=== PATIENT | male | born 1955 | race Caucasian/White ===

== ENCOUNTER → 2019-09-21 10:02 | Outpatient (BNVA) | payer MEDICARE, SELFPAY | PROVIDERS: Family Provider Family Medicine; PCP Family Medicine; Visit Provider Urology | DX: N40.0 Benign prostatic hyperplasia without lower urinary tract symptoms (principal); N39.0 Urinary tract infection, site not specified | CPT/HCPCS: 81001 ==

== ENCOUNTER → 2020-02-11 09:00 | Outpatient (BNVA) | payer MEDICARE, SELFPAY | PROVIDERS: Family Provider Family Medicine; PCP Family Medicine; Visit Provider Nurse Practitioner Family | DX: E11.9 Type 2 diabetes mellitus without complications (principal); Z12.11 Encounter for screening for malignant neoplasm of colon; Z68.33 Body mass index [BMI] 33.0-33.9, adult; I10 Essential (primary) hypertension; N40.0 Benign prostatic hyperplasia without lower urinary tract symptoms | CPT/HCPCS: 80053; 80061; 83036; 84153; 84439; 84443 ==

== ENCOUNTER → 2020-03-10 13:36 | Outpatient (BNVA) | payer MEDICARE, SELFPAY | PROVIDERS: Family Provider Family Medicine; PCP Family Medicine; Visit Provider Nurse Practitioner Family | DX: Z02.89 Encounter for other administrative examinations (principal) | CPT/HCPCS: 81000 ==

== ENCOUNTER 2020-03-20 08:21 | Day surgery (SDC) | payer MEDICARE, SELFPAY ==
[2020-03-17 07:57] VITALS: BMI 33.7
[2020-03-20 08:37] VITALS: BP 144/103; PULSE 66; RESP 18; TEMP 36.4; O2SAT 98
[2020-03-20] MEDS: sodium chloride 0.9% 1,000 ML 30 ML IV (08:46)
[2020-03-20 08:50] LABS: Glucose Point of Care 137 mg/dL (70-110)
--- NOTE | 2020-03-20 08:56 | ANES.PREANE2 ---
Pre-Anesthetic Assessment Pre-Anesthetic Assessment: Height/Weight: Height 1.88 m Weight 119.295 kg Temp Pulse Resp BP Pulse Ox 97.5 F L 66 18 144/103 98 03/20/20 08:37 03/20/20 08:37 03/20/20 08:37 03/20/20 08:37 03/20/20 08:37 Preop Diagnosis: screening Proposed Procedure: Operation Date: 03/20/20 09:30 Proposed Procedures p colonsocopy [id number](Not Applicable) - José Luis Barnes MD Familial anesthetic complications: none Was Beta Jigar taken within 24 hours: N/A Last intake: Intake Last Liquid Date 03/19/20 Last Liquid Time 21:00 Last Solid Date 03/18/20 Social: Social History: No alcohol and No tobacco Exam: Pre-Anes Outpt Exam: alert, oriented x 3, clear to auscultation bilaterally and regular rate & rhythm Airway: Cervical ROM: WNL MP: 1 Dentition: Full Pulmonary: Pulmonary: None reported CV/HEM: CV/HEM: Arrythmia and HTN : : UTI (last month) Hepatic: Hepatic: None reported GI: GI: GERD Metabolic: Metabolic: DM (type 2), Hyperlipidemia and Morbid obesity Musc/skel: Musc/skel: Lower Back Pain and OA/DJD Neuropsych: Neuropsych: None reported Anesthetic Plan: ASA status: 2 Anesthesia: MAC Risk of > 500 ml blood loss (7ml/kg in children): No Meds/Allergies Current Medications: Current Medications Generic Name Dose Route Start Last Admin Trade Name Freq PRN Reason Stop Dose Admin Sodium Chloride 1,000 mls @ 30 ml s/hr 03/20/20 08:30 03/20/20 08:46 Sodium Chloride 0.9% IV 03/21/20 08:29 30 mls/hr .Q24H FERNANDO Administration PFSH Anesthesia PFSH: Medical History BPH w/o urinary obs/LUTS Diabetes Dyslipidemia Erectile dysfunction Essential hypertension Obesity PVCs (premature ventricular contractions) Recurrent UTI Has antibiotics on hand Testicular dysfunction Surgical History H/O elbow surgery H/O transurethral resection of prostate S/P cholecystectomy Family History Family/Other Diabetes Mother , 80 No problems noted. Father , 85 Dementia Social History Smoking and tobacco status: former smoker Alcohol intake: never Adopted: No Caregiver/support person: No Lives independently: No Marital status: Current occupational status: employed History of recent travel: No Current gender identity: Male Data Anesthesia Other Labs: Laboratory Results - last 48 hr 03/20/20 08:46 POC Glucose 137 Cardiac Studies: No Data to Display
--- NOTE | 2020-03-20 09:16 | W.PM.OPSUD ---
Surgery/Procedure H&P Update DATE OF PROCEDURE: March 20, 2020 DATE H&P PERFORMED: 03/14/20 PREOP DIAGNOSIS: screening PLANNED PROCEDURE: Operation Date: 03/20/20 09:30 Proposed Procedures p colonsocopy [id number](Not Applicable) - José Luis Barnes MD
[2020-03-20 09:25] VITALS: BP 116/80; PULSE 66; RESP 16; TEMP 36.5; O2SAT 95
--- NOTE | 2020-03-20 09:27 | ANE.PACU2 ---
Inpatient post-anesthesia follow up: Airway intact: Yes Vital signs: Temperature 97.5 F Pulse Rate 66 Respiratory Rate 18 Blood Pressure 144/103 Pulse Oximetry 98 Oxygen Delivery Me thod Room Air Oxygen Flow Rate Fraction of Inspir ed Oxygen Hydration adequate: Yes Nausea and vomiting: No Pain level: 1 Mental status: Baseline
[2020-03-20 09:44] VITALS: BP 130/84; PULSE 71; RESP 18; O2SAT 97
== END 2020-03-20 10:00 | disposition home or self-care (01) ==
PROVIDERS: PCP Family Medicine; Visit Provider Internal Medicine
PROC: 0DJD8ZZ Inspection of Lower Intestinal Tract, Via Natural or Artificial Opening Endoscopic (ICD-10-PCS; CPT 45378; principal; 2020-03-20 09:30)
DX: Z12.11 Encounter for screening for malignant neoplasm of colon (principal); I10 Essential (primary) hypertension; K21.9 Gastro-esophageal reflux disease without esophagitis; E11.9 Type 2 diabetes mellitus without complications; E78.5 Hyperlipidemia, unspecified; M19.90 Unspecified osteoarthritis, unspecified site; E66.01 Morbid (severe) obesity due to excess calories; N40.0 Benign prostatic hyperplasia without lower urinary tract symptoms; N52.9 Male erectile dysfunction, unspecified; I49.3 Ventricular premature depolarization; Z87.891 Personal history of nicotine dependence
CPT/HCPCS: 12345; 36416; 45378; 82962; G0121; J2704; J7030

== ENCOUNTER → 2020-08-07 11:16 | Outpatient (BNVA) | payer MEDICARE, SELFPAY | PROVIDERS: PCP Family Medicine; Visit Provider Family Medicine | DX: R30.0 Dysuria (principal); N32.89 Other specified disorders of bladder; R39.9 Unspecified symptoms and signs involving the genitourinary system | CPT/HCPCS: 81000; 81003 ==

== ENCOUNTER → 2021-02-27 09:48 | Outpatient (BNVA) | payer MEDICARE, SELFPAY | PROVIDERS: PCP Family Medicine; Visit Provider Nurse Practitioner Family | DX: Z00.00 Encounter for general adult medical examination without abnormal findings (principal); I10 Essential (primary) hypertension; E11.9 Type 2 diabetes mellitus without complications; Z12.5 Encounter for screening for malignant neoplasm of prostate | CPT/HCPCS: 80053; 80061; 81000; 82043; 83036; 85025 ==

== ENCOUNTER → 2021-03-06 16:19 | Outpatient (BNVA) | payer MEDICARE, SELFPAY | PROVIDERS: PCP Family Medicine; Visit Provider Nurse Practitioner Family | DX: N40.0 Benign prostatic hyperplasia without lower urinary tract symptoms (principal); Z12.5 Encounter for screening for malignant neoplasm of prostate | CPT/HCPCS: G0103 ==

== ENCOUNTER 2021-07-24 12:24 | Outpatient (CLI) | payer MEDICARE, SELFPAY | END 2021-07-24 12:25 | disposition home or self-care (01) | PROVIDERS: PCP Family Medicine; Visit Provider Urology | DX: Z12.5 Encounter for screening for malignant neoplasm of prostate (principal) | CPT/HCPCS: 84153 ==

== ENCOUNTER → 2021-07-25 08:01 | Outpatient (BNVA) | payer MEDICARE, SELFPAY | PROVIDERS: PCP Family Medicine; Visit Provider Urology | DX: Z12.5 Encounter for screening for malignant neoplasm of prostate (principal) | CPT/HCPCS: 81003 ==

== ENCOUNTER → 2021-10-01 13:55 | Outpatient (BNVA) | payer MEDICARE, SELFPAY | PROVIDERS: PCP Family Medicine; Visit Provider Family Medicine | DX: R30.0 Dysuria (principal); N39.0 Urinary tract infection, site not specified; N41.0 Acute prostatitis | CPT/HCPCS: 81000 ==

== ENCOUNTER → 2021-12-26 10:08 | Outpatient (BNVA) | payer MEDICARE, SELFPAY | PROVIDERS: PCP Family Medicine; Visit Provider Nurse Practitioner Family | DX: N39.0 Urinary tract infection, site not specified (principal); R31.9 Hematuria, unspecified | CPT/HCPCS: 81003 ==

== ENCOUNTER → 2022-02-20 14:24 | Outpatient (BNVA) | payer MEDICARE, SELFPAY | PROVIDERS: PCP Family Medicine; Visit Provider Family Medicine | DX: Z00.00 Encounter for general adult medical examination without abnormal findings (principal); E11.9 Type 2 diabetes mellitus without complications; M25.559 Pain in unspecified hip; M54.40 Lumbago with sciatica, unspecified side | CPT/HCPCS: 81003; 83036 ==

== ENCOUNTER 2022-04-02 08:58 | Outpatient (CLI) | payer MEDICARE, SELFPAY ==
--- NOTE | 2022-04-02 09:00 | MR_ITS ---
WS: [id number] MRI LUMBAR SPINE NONCONTRAST TECHNIQUE: Sagittal T1, T2 and STIR imaging. Axial T1 and T2 imaging. CLINICAL INFORMATION: M54.40 - Lumbago with sciatica, unspecified side COMPARISON: None. FINDINGS: Mild lumbar curve. No acute compression. Grade 1 anterolisthesis L4 on L5. L1-L2: Normal. L2-L3: Mild disc bulging with slight effacement of ventral thecal sac. Moderate facet arthropathy. Na rrowing of the subarticular recess bilaterally RIGHT greater than LEFT. Mild RIGHT foraminal narrowin g. L3-L4: Mild annular bulging. Mild central canal stenosis. Impingement on the RIGHT subarticular reces s and traversing RIGHT L4 nerve root. RIGHT foraminal protrusion with mild RIGHT foraminal narrowing. LEFT foramen is patent. Moderate facet arthropathy. L4-L5: Mild disc bulging with osteophytic ridging. Moderate central canal stenosis. Impingement on th e traversing RIGHT greater than LEFT L5 nerve roots. Moderate facet arthropathy ligamentum flavum hyp ertrophy. Small facet effusions. Mild RIGHT foraminal narrowing. L5-S1:Mild disc osteophytic ridging. LEFT eccentric disc osteophyte complex encroaches on the far exi ting LEFT L5 nerve root laterally. RIGHT foramen is patent. Mild facet arthropathy. Spinal canal is p atent. Small bilateral renal cysts. Lumbar curve convex LEFT. MR/MR lumbar spine wo con* [id number] IMPRESSION: 1. Lumbar curve convex LEFT. No acute compression fractures. Grade 1 anterolis thesis L4 on L5. 2. Moderate central canal stenosis L4-L5 with impingement traversing RIGHT gre ater than LEFT L5 nerve roots. Mild RIGHT foraminal narrowing. 3. Mild central canal stenosis L3-L4 with impingement on the traversing RIGHT greater than LEFT L4 nerve roots. Mild RIGHT L3-L4 foraminal narrowing. 4. Slight narrowing of the subarticular recess bilaterally L2-L3. 5. Moderate facet arthropathy worse L4-L5 with small facet effusions.
== END 2022-04-02 08:59 | disposition home or self-care (01) ==
LOC: RAD 09:03
PROVIDERS: PCP Family Medicine; Visit Provider Family Medicine
DX: M54.40 Lumbago with sciatica, unspecified side (principal); M41.9 Scoliosis, unspecified; M48.061 Spinal stenosis, lumbar region without neurogenic claudication; M47.816 Spondylosis without myelopathy or radiculopathy, lumbar region
CPT/HCPCS: 72148

== ENCOUNTER 2022-05-04 06:00 | Outpatient (RCR) | payer MEDICARE, SELFPAY | END 2022-06-03 23:59 | disposition home or self-care (01) | LOC: GPT 06:00 | PROVIDERS: PCP Family Medicine; Visit Provider Neurological Surgery | DX: M54.16 Radiculopathy, lumbar region (principal) | CPT/HCPCS: 97110; 97112; 97140; 97162 ==

== ENCOUNTER 2022-06-04 06:00 | Outpatient (RCR) | payer MEDICARE, SELFPAY | END 2022-06-25 09:59 | disposition home or self-care (01) | LOC: GPT 06:00 | PROVIDERS: PCP Family Medicine; Visit Provider Neurological Surgery | DX: M54.16 Radiculopathy, lumbar region (principal) | CPT/HCPCS: 97110; 97140; 97530 ==

== ENCOUNTER → 2022-08-07 11:41 | Outpatient (BNVA) | payer MEDICARE, SELFPAY | PROVIDERS: PCP Family Medicine; Visit Provider Nurse Practitioner Family | DX: R05.9 Cough, unspecified (principal) | CPT/HCPCS: 87400; 87426 ==

== ENCOUNTER → 2023-03-06 08:31 | Outpatient (BNVA) | payer MEDICARE, SELFPAY | PROVIDERS: PCP Family Medicine; Visit Provider Family Medicine | DX: E11.9 Type 2 diabetes mellitus without complications (principal); E78.5 Hyperlipidemia, unspecified | CPT/HCPCS: 80053; 80061; 81003; 83036; 84439; 84443; 85025 ==

== ENCOUNTER → 2023-03-12 08:41 | Outpatient (BNVA) | payer MEDICARE, SELFPAY | PROVIDERS: PCP Family Medicine; Visit Provider Family Medicine | DX: E11.9 Type 2 diabetes mellitus without complications (principal); E78.5 Hyperlipidemia, unspecified; N28.89 Other specified disorders of kidney and ureter; I10 Essential (primary) hypertension | CPT/HCPCS: 80053; 80061; 84439; 84443; 85025 ==

== ENCOUNTER → 2023-08-06 09:32 | Outpatient (BNVA) | payer MEDICARE, SELFPAY | PROVIDERS: PCP Family Medicine; Visit Provider Family Medicine | DX: E11.9 Type 2 diabetes mellitus without complications (principal); G47.30 Sleep apnea, unspecified; E78.5 Hyperlipidemia, unspecified | CPT/HCPCS: 83036 ==

== ENCOUNTER 2023-09-30 10:00 | Outpatient (CLI) | payer MEDICARE, SELFPAY | END 2023-09-30 10:01 | disposition home or self-care (01) | LOC: SLEEP 10-01 09:39 | PROVIDERS: PCP Family Medicine; Visit Provider Family Medicine | DX: G47.33 Obstructive sleep apnea (adult) (pediatric) (principal) | CPT/HCPCS: G0399 ==

== ENCOUNTER → 2023-12-04 09:00 | Outpatient (BNVA) | payer MEDICARE, SELFPAY | PROVIDERS: PCP Family Medicine; Visit Provider Family Medicine | DX: I10 Essential (primary) hypertension (principal); E78.5 Hyperlipidemia, unspecified; E11.9 Type 2 diabetes mellitus without complications; I25.10 Atherosclerotic heart disease of native coronary artery without angina pectoris; N40.0 Benign prostatic hyperplasia without lower urinary tract symptoms; G47.30 Sleep apnea, unspecified; Z12.5 Encounter for screening for malignant neoplasm of prostate; R79.89 Other specified abnormal findings of blood chemistry; E55.9 Vitamin D deficiency, unspecified; E83.42 Hypomagnesemia; L02.214 Cutaneous abscess of groin | CPT/HCPCS: 80053; 80061; 82306; 82607; 83036; 83735; 84439; 84443; 85025; G0103 ==

== ENCOUNTER → 2023-12-25 09:11 | Outpatient (BNVA) | payer MEDICARE, SELFPAY | PROVIDERS: PCP Family Medicine; Visit Provider Family Medicine | DX: E11.9 Type 2 diabetes mellitus without complications (principal) | CPT/HCPCS: 83036 ==

== ENCOUNTER → 2024-01-07 08:26 | Outpatient (BNVA) | payer MEDICARE, SELFPAY | PROVIDERS: PCP Family Medicine; Referring Provider Urology; Visit Provider Family Medicine | DX: Z12.5 Encounter for screening for malignant neoplasm of prostate (principal); N40.1 Benign prostatic hyperplasia with lower urinary tract symptoms | CPT/HCPCS: G0103 ==